=== PATIENT | female | born 1995 | race Hispanic/Latino ===

== ENCOUNTER 2018-04-02 01:52 | Emergency (ER) | payer SELFPAY ==
[2018-04-02 02:02] VITALS: RESP 18; TEMP 97; O2SAT 97
[2018-04-02 02:26] VITALS: BP 127/85; PULSE 87
--- NOTE | 2018-04-02 02:30 | ED PDOC ---
HPI: Psych/Substance Abuse Time Seen by Provider: 04/02/18 02:16 Chief Complaint (Nursing): Alcohol Ingestion Chief Complaint (Provider): etoh History Per: Patient Additional Complaint(s): 22 year old intoxicated female presents to ED for evaluation. She was escorted to ED by EMS after being take home. Police did not want to leave her in her apartment alone so she was brought here. She offers no complaints. Past Medical History Reviewed: Historical Data, Nursing Documentation, Vital Signs Vital Signs: Last Vital Signs Temp 97.0 F L 04/02/18 01:58 Pulse 101 H 04/02/18 01:58 Resp 18 04/02/18 01:58 BP 147/100 H 04/02/18 01:58 Pulse Ox 97 04/02/18 01:58 - Medical History PMH: No Chronic Diseases - Family History Family History: States: No Known Family Hx - Living Arrangements Living Arrangements: With Friends/Others - Social History Current smoker - smoking cessation education provided: No Alcohol: Social Drugs: Denies - Allergies Allergies/Adverse Reactions: Allergies Allergy/AdvReac Type Severity Reaction Status Date / Time amoxicillin Allergy Mild RASH Verified 04/02/18 02:03 Review of Systems ROS Statement: Except As Marked, All Systems Reviewed And Found Negative Psych: Positive for: Other (etoh) Physical Exam - Reviewed Nursing Documentation Reviewed: Yes Vital Signs Reviewed: Yes - Physical Exam Appears: Positive for: Well, Non-toxic, No Acute Distress Skin: Positive for: Normal Color. Negative for: Rash Eye Exam: Positive for: Normal appearance Cardiovascular/Chest: Positive for: Regular Rate, Rhythm Respiratory: Positive for: Normal Breath Sounds Extremity: Positive for: Normal ROM Neurologic/Psych: Positive for: Alert, Oriented, Gait (steady) - ECG O2 Sat by Pulse Oximetry: 97 Pulse Ox Interpretation: Normal Medical Decision Making Medical Decision Makin22 year old intoxicated female Patient called her father who will come to ED to take her home. Disposition - Clinical Impression Clinical Impression: Alcohol ingestion - Patient ED Disposition Is Patient to be Admitted: No - Disposition Referrals: [facility] [Outside] Disposition: Routine/Home Disposition Time: 02:31 Condition: STABLE Instructions: Alcohol Use - When Is Drinking a Problem?
== END 2018-04-02 03:30 | disposition home or self-care (01) ==
LOC: H.ER 01:52
DX: F10.10 Alcohol abuse, uncomplicated (principal)